=== PATIENT | female | born 1930 | race Caucasian/White ===

== ENCOUNTER → 2016-12-08 | Outpatient (CLI) | payer OTHER, MEDICAID | LOC: CIMAGING 12:14 | PROVIDERS: ATTEND Family Medicine | DX: S32.502A Unspecified fracture of left pubis, initial encounter for closed fracture (principal); M81.8 Other osteoporosis without current pathological fracture | CPT/HCPCS: 72190-PO ==

== ENCOUNTER 2016-12-09 10:00 | Emergency (ER) | payer OTHER, MEDICAID ==
[2016-12-09 10:08] VITALS: TEMP 98.2; O2SAT 96
--- NOTE | 2016-12-09 11:02 | EDPHY ---
H & P Stated Complaint: pelvic fx x 1 month old Time Seen by Provider: 12/09/16 10:10 HPI/ROS: CHIEF COMPLAINT: pelvic fracture HISTORY OF PRESENT ILLNESS: 86-year-old female presents emergency department sent by her primary care doctor for an x-ray that shows a inferior pubic ramus fracture. Patient has been complaining of left hip pain x1 month after walking up stairs at her daughter's house, no trauma. Patient was seen by her primary care doctor, had physical therapy which worsened her pain. She got an x-ray yesterday which showed a inferior pubic ramus fracture. Patient reports pain with weight-bearing, no numbness or tingling to her extremities, loss of control of her bowel or bladder REVIEW OF SYSTEMS: A comprehensive 10 point review of systems is otherwise negative aside from elements mentioned in the history of present illness. Source: Patient Exam Limitations: No limitations - Personal History Current Tetanus/Diphtheria Vaccine: Unsure - Medical/Surgical History Hx Asthma: Yes Hx Chronic Respiratory Disease: No Hx Diabetes: Yes Hx Cardiac Disease: No Hx Renal Disease: No Hx Cirrhosis: No Hx Alcoholism: No Hx HIV/AIDS: No Hx Splenectomy or Spleen Trauma: No Other PMH: Cholecystectomy. Pre Diabetic. HTN. Asthma. GERD. 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 HEENT: PERRL, moist mucous membranes NECK: no meningismus CV: regular rate and regular rhythm PULM: CTAB, no wheezes ABDOMEN: soft, non tender to palpation, BS present BACK: No CVA tenderness NEURO: Neurologically grossly intact EXTREMITIES: Left hip with full range of motion, mild tenderness to palpation to left side on lateral hip squeeze, 2+ pedal pulses, sensation intact to light touch, no leg shortening or rotation SKIN: no rash or break in skin on exposed skin PSYCH: answers questions appropriately. Constitutional: Initial Vital Signs Temperature (C) 36.8 C 12/09/16 10:02 Heart Rate 76 12/09/16 10:02 Respiratory Rate 16 12/09/16 10:02 Blood Pressure 124/85 H 12/09/16 10:02 O2 Sat (%) 96 12/09/16 10:02 O2 Delivery Mode Room Air Allergies/Adverse Reactions: aspirin Allergy (Verified 12/09/16 10:08) GI peanut Allergy (Verified 12/09/16 10:08) RECOMMENDED SHE AVOID Penicillins Allergy (Verified 12/09/16 10:08) Unknown Home Medications: Medication Instructions Recorded Esomeprazole Mag Trihydrate 40 mg PO DAILY PRN 03/24/16 [Nexium] Fluticasone/Salmeter 250/50Mcg 2 puffs IH BID 03/24/16 [Advair 250/50 (*)] Herbals/Supplements -Info Only 1 ea PO DAILY 03/24/16 Loratadine [Claritin 10 mg] 10 mg PO DAILY 03/24/16 amLODIPine BESYLATE [Norvasc 10 mg 10 mg PO DAILY 03/24/16 (*)] Medical Decision Making - Diagnostics Imaging Results: pelvis xray done yesterday shows an left inferior pubic rami fracture. Imaging: I viewed and interpreted images myself ED Course/Re-evaluation: 11am. Dr. Mesa consulted. He has reviewed the patients xrays. Since she has been ambulating on her hip for the past month, he is comfortable with her being discharged to home with instructions for her to ambulate with her walker and to follow up in clinic as an outpatient. Patient and her son are comfortable with this plan. Departure - Departure Disposition: Home, Routine, Self-Care Clinical Impression: Closed fracture of ramus of left pubis Qualifiers: Encounter type: initial encounter Qualified Code(s): S32.592A - Other specified fracture of left pubis, initial encounter for closed fracture Condition: Good Instructions: Pelvic Fracture (ED) Additional Instructions: Rest, take 650mg of tylenol every 8 hours as needed for pain. Follow up with the orthopedist at first available appointment. Call to schedule this. Use a walker for ambulation. Return to the emergency department for worsening symptoms, pain that is not controlled, new symptoms or concerns. Referrals: Jadiel Mesa MD [Medical Doctor] - As per Instructions (orthopedist chronometer repairer)
[2016-12-09 12:08] VITALS: BP 118/74; PULSE 78; RESP 18
== END 2016-12-09 12:08 | disposition home or self-care (01) ==
DX: S32.592A Other specified fracture of left pubis, initial encounter for closed fracture (principal); X58.XXXA Exposure to other specified factors, initial encounter; J45.909 Unspecified asthma, uncomplicated; E11.9 Type 2 diabetes mellitus without complications; I10 Essential (primary) hypertension; Z91.010 Allergy to peanuts

== ENCOUNTER → 2017-01-10 | Outpatient (CLI) | payer OTHER, MEDICAID | LOC: BRMIMAGING 13:29 | PROVIDERS: ATTEND Family Medicine | DX: Z13.820 Encounter for screening for osteoporosis (principal); M81.8 Other osteoporosis without current pathological fracture; D64.9 Anemia, unspecified; N28.9 Disorder of kidney and ureter, unspecified; I10 Essential (primary) hypertension ==

== ENCOUNTER 2017-05-03 08:43 | Inpatient (IN) | payer OTHER, MEDICAID ==
[2017-05-03 09:09] LABS: PLATELET COUNT 307 10^3/uL (150-400)
--- NOTE | 2017-05-03 09:16 | CPEKG ---
Heart Rate: 73 RR Interval: 822 P-R Interval: 228 QRSD Interval: 100 QT Interval: 444 QTC Interval: 490 P [place]: -3 QRS [place]: -14 T Wave [place]: 90 EKG Severity - ABNORMAL ECG - EKG Impression: SINUS RHYTHM EKG Impression: FIRST DEGREE AV BLOCK EKG Impression: LEFT ATRIAL ABNORMALITY EKG Impression: LVH WITH SECONDARY REPOLARIZATION ABNORMALITY EKG Impression: BORDERLINE PROLONGED QT INTERVAL Electronically Signed By: Gilda Duckworth 03-May-2017 15:08:38
--- NOTE | 2017-05-03 09:34 | EDPHY ---
H & P Time Seen by Provider: 05/03/17 08:51 HPI/ROS: CHIEF COMPLAINT: Generalized weakness, right upper quadrant pain HISTORY OF PRESENT ILLNESS: 86-year-old female with a history of hypertension and prior cholecystectomy presents with generalized weakness and right upper quadrant pain. Onset of intermittent right upper quadrant pain 1 week ago, without clear alleviating or aggravating factors. Associated with generalized weakness and a mild headache for the past few days. Decreased appetite yesterday, but tolerating oral fluids and food well. She also complains of ongoing right-sided upper back discomfort over the last few months. The pain increases with movement and with using her walker. She has been using a walker to ambulate after a recent non-operative hip fracture (6 months ago). REVIEW OF SYSTEMS: Constitutional: No fever, no chills Eyes: No visual changes ENT: No sore throat Respiratory: No cough, no shortness of breath Cardiac: No chest pain Gastrointestinal: No nausea, no vomiting, no abdominal pain Genitourinary: no dysuria Musculoskeletal: No leg pain or swelling Skin: No rash Psychiatric: No depression Past Medical/Surgical History: Hypertension Asthma Borderline diabetes Social History: Lives in own home with son Smoking Status: Never smoked Physical Exam: General Appearance: Alert, appears comfortable, Farsi-speaking, son as software consultant Eyes: Pupils equal and round, no conjunctival pallor or injection ENT, Mouth: Mucous membranes moist Neck: Normal inspection Respiratory: Lungs are clear to auscultation Cardiovascular: Regular rate and rhythm Gastrointestinal: Abdomen is soft and nontender Neurological: Alert, oriented x3, cranial nerves II through XII intact, motor 5 /5, sensory intact to light touch, gait not assessed Skin: Warm and dry Extremities: Nontender, no pedal edema Psychiatric: Flat affect Constitutional: Initial Vital Signs Temperature (C) 36.4 C 05/03/17 08:43 Heart Rate 81 05/03/17 08:43 Respiratory Rate 18 05/03/17 08:43 Blood Pressure 185/109 H 05/03/17 08:43 O2 Sat (%) 91 L 05/03/17 08:43 O2 Delivery Mode Room Air Allergies/Adverse Reactions: aspirin Allergy (Verified 05/03/17 08:56) GI peanut Allergy (Verified 05/03/17 08:56) RECOMMENDED SHE AVOID Penicillins Allergy (Verified 05/03/17 08:56) Unknown Home Medications: Medication Instructions Recorded Esomeprazole Mag Trihydrate 40 mg PO DAILY PRN 03/24/16 [Nexium] amLODIPine BESYLATE [Norvasc 10 mg 10 mg PO DAILY@12 03/24/16 (*)] Ferrous Sulfate [Ferrous Sulf 325 325 mg PO DAILY 05/03/17 MG (*)] Fluticasone/Vilanterol [Breo 1 each IH DAILY 05/03/17 Ellipta 100-25 Mcg INH] Levothyroxine [Synthroid 25 mcg 12.5 mcg PO DAILY06 05/03/17 (*)] Medical Decision Making ED Course/Re-evaluation: This patient presents with multiple complaints, but seems that the primary complaints are right upper quadrant pain and generalized weakness. Her abdomen is soft and nontender and she denies abdominal pain in the emergency department. Laboratory studies including LFTs and lipase are normal and she has had a prior cholecystectomy. Given no abdominal tenderness and no pain, I will not proceed with imaging at this time. Laboratories reveal acute hyponatremia, with a serum sodium level of 113. In review of her prior sodium levels, this is quite abnormal for her. According to her son, she has been acting normally and has not been confused. No prior history of severe hyponatremia. She has had decreased appetite over the last 24 hr, but her son thinks that she has had normal fluid intake. No recent medication changes. I ordered a urine sodium and urine osmolality to further evaluate this. No IV fluids were given in the emergency department. The hospitalist service was consulted for admission for acute hyponatremia. d/w Dr. Fierro, will consult. Differential Diagnosis: Altered mental status including but not limited to hypoglycemia, infectious process, electrolyte abnormality, head injury and intoxicants. - Data Points Laboratory Results: Laboratory Results 05/03/17 08:45 05/03/17 08:45 Medications Given: Alteplase, Recombinant (Cathflo Activase) 2 mg IVP PRN PRN PRN Reason: Per PICC line policy Stop: 10/30/17 11:58 Last Admin: 05/04/17 05:29 Dose: 2 mg Amlodipine Besylate (Norvasc) 10 mg PO DAILY@12 [facility] Stop: 10/30/17 16:44 Last Admin: 05/04/17 12:16 Dose: 10 mg Enoxaparin Sodium (Lovenox) 40 mg SC DAILY [facility] Stop: 10/31/17 08:59 Last Admin: 05/04/17 09:43 Dose: 40 mg Ferrous Sulfate (Ferrous Sulfate) 325 mg PO DAILY [place] Stop: 10/31/17 08:59 Last Admin: 05/04/17 09:43 Dose: 325 mg Furosemide (Lasix Injection) 10 mg IVP Q6HRS [place] Stop: 10/31/17 17:59 Last Admin: 05/04/17 17:11 Dose: 10 mg Levothyroxine Sodium (Synthroid) 12.5 mcg PO DAILY06 [place] Stop: 10/31/17 05:59 Last Admin: 05/04/17 05:29 Dose: 12.5 mcg Miscellaneous Medication (Fluticasone/Vilanterol [Breo Ellipta 100-25 Mcg Inh]) 1 each IH DAILY [place] Stop: 10/31/17 08:59 Last Admin: 05/04/17 11:07 Dose: 1 puffs Pantoprazole Sodium (Protonix) 40 mg PO DAILY [place] Stop: 10/31/17 08:59 Last Admin: 05/04/17 09:43 Dose: 40 mg Potassium Chloride (Klor-Con) 10 meq PO Q6H [place] Stop: 10/31/17 13:14 Last Admin: 05/04/17 20:38 Dose: 10 meq Discontinued Medications Lipase/Protease/Amylase (Creon) 1 cap PO TIDMEAL [place] Stop: 10/31/17 11:59 Last Admin: 05/04/17 12:15 Dose: 1 cap Desmopressin Acetate (Ddavp) 2 mcg SC ONCE ONE Stop: 05/04/17 02:16 Last Admin: 05/04/17 02:10 Dose: 2 mcg Dextrose (D5w (Mini-Bag)) 250 ml IV ONCE ONE Stop: 05/04/17 10:01 Last Admin: 05/04/17 10:29 Dose: 250 ml Sodium Chloride (Sodium Chloride 3%) 50 mls @ 100 mls/hr IV ONCE ONE Stop: 05/03/17 15:59 Last Admin: 05/03/17 15:40 Dose: 50 mls Dextrose (D5w) 250 mls @ 0 mls/hr IV ONCE ONE PRN Reason: As Directed Stop: 05/04/17 04:31 Last Admin: 05/04/17 04:45 Dose: 250 mls Dextrose (D5w) 1,000 mls @ 100 mls/hr IV .CONT [place] Stop: 10/31/17 09:59 Last Admin: 05/04/17 10:29 Dose: 1,000 mls Sodium Chloride 50 ml/ (Miscellaneous Information) 50 mls @ 50 mls/hr IV ONCE ONE Stop: 05/04/17 13:59 Last Admin: 05/04/17 13:30 Dose: 50 mls Sodium Chloride (Sodium Chloride 3%) 50 mls @ 100 mls/hr IV ONCE ONE Stop: 05/04/17 19:29 Last Admin: 05/04/17 19:11 Dose: 50 mls Departure - Departure Disposition: [facility] Inpatient Acute Clinical Impression: Acute hyponatremia Condition: Fair
[2017-05-03] MEDS ORDERED: ONDANSETRON DISINTEGRATING 4 MG TAB PO PRN (10:20)
[2017-05-03] MEDS ORDERED: ONDANSETRON 4 MG/2 ML VIAL IVP PRN (10:20)
[2017-05-03] MEDS ORDERED: NON-FORMULARY NEW DRUG (Esomeprazole Mag Trihydrate [Nexium] 40 MG) PO PRN (13:40)
--- NOTE | 2017-05-03 13:46 | PDGENHP ---
History and Physical - Chief Complaint Acute weakness - History of Present Illness PCP: Dr. Tiffanie Meza HPI: 86 yo F presents with acute weakness characterized as generalized with associated disrupted sleep on the evening prior to this presentation secondary to pain located in her shoulders, posterior head, right upper quadrant pain. The symptoms have occurred in the context of approximately 1 week of was initially intermittent right upper quadrant pain and then over the last 2 days has become fairly constant. This has resulted in anorexia, although the patient reports that she has continued attempts to eat and drink normally. She follows a very low-salt diet given her history of hypertension, and she diligently monitors her blood pressure. She has had the pain in her shoulders and posterior head for quite some time, and it is exacerbated by utilizing her walker. She has seen her PCP for this issue and her belief was that the patient was experiencing muscular strain from tension related to use of her walker, which is fairly new since her left hip fracture non operatively treated 6 months ago. Over the past 24 hr, the patient's son, who resides with her, reports that her mental clarity has been impaired, the patient has been feeling dizzy, and that she has this overall seemed more restless. He has also noted oliguria beginning on the evening prior to this presentation, and the patient's last bowel movement was approximately 24-36 hr ago. She has continued taking all of her home medications. History Information - Allergies/Home Medication List Allergies/Adverse Reactions: aspirin Allergy (Verified 05/03/17 08:56) GI peanut Allergy (Verified 05/03/17 08:56) RECOMMENDED SHE AVOID Penicillins Allergy (Verified 05/03/17 08:56) Unknown Home Medications: Esomeprazole Mag Trihydrate [Nexium] 40 mg PO DAILY PRN 03/24/16 [Last Taken 3 Days Ago ~04/30/17] amLODIPine BESYLATE [Norvasc 10 mg (*)] 10 mg PO DAILY@12 03/24/16 [Last Taken 05/02/17] Ferrous Sulfate [Ferrous Sulf 325 MG (*)] 325 mg PO DAILY 05/03/17 [Last Taken 3 Days Ago ~04/30/17] Fluticasone/Vilanterol [Breo Ellipta 100-25 Mcg INH] 1 each IH DAILY 05/03/17 [ Last Taken 05/02/17] Levothyroxine [Synthroid 25 mcg (*)] 12.5 mcg PO DAILY06 05/03/17 [Last Taken ] I have personally reviewed and updated: family history, medical history, social history, surgical history - Past Medical History diabetes type 2 (With most recent hemoglobin A1c 6.2%), hypertension, hyperlipidemia Additional medical history: Hip fracture non operatively managed approximately 6 months ago. Mild to moderate mitral stenosis. Eczema. GERD. Chronic constipation - Surgical History Additional surgical history: Cholecystectomy - Family History Negative for: CAD - Social History Smoking Status: Never smoked Alcohol Use: None Drug Use: None Additional social history: Resides with her adult son, he is her mill operator head, she has returned from [facility], she utilizes a walker Review of Systems Review of Systems: ROS: 10pt was reviewed & negative except for what was stated in HPI & below Constitutional: Reports: weakness Gastrointestinal: Reports: constipation Genitourinary: Reports: other (Oliguria) Muscolosketal: Reports: other (Posterior neck and shoulder pain) Neurological: Reports: headache, other (Dizziness) Physical Exam Physical Exam: Temp Pulse Resp BP Pulse Ox 36.3 C 67 33 H 141/63 H 94 05/03/17 12:13 05/03/17 12:13 05/03/17 12:13 05/03/17 12:13 05/03/17 12:13 O2 (L/minute) 2 Constitutional: appears nourished, not in pain, other (Aged appearing), No uncomfortable Eyes: PERRL, anicteric sclera, EOMI Ears, Nose, Mouth, Throat: moist mucous membranes, hearing normal, ears appear normal, no oral mucosal ulcers Cardiovascular: systolic murmur (2/6 at the sternum, 3/6 at the apex), No irregularly irregular, No tachycardia, No edema Respiratory: no respiratory distress, no rales or rhonchi, clear to auscultation Gastrointestinal: normoactive bowel sounds, no palpable masses, tenderness ( Mild in the right upper quadrant), No guarding, No distension Genitourinary: no bladder fullness, no bladder tenderness, other (No CVA tenderness) Skin: warm, normal color, No rash Musculoskeletal: other (Full range of motion of the neck without any pain elicited, no tenderness over the superior trapezius muscles) Neurologic: sensation intact bilaterally, other (Alert awake oriented x2), No facial droop Psychiatric: not anxious, other (Responsive to verbal stimuli), No agitated Lab Data & Imaging Review 05/03/17 08:45 05/03/17 12:05 WBC 4.87 10^3/uL (3.80-9.50) 05/03/17 08:45 RBC 4.51 10^6/uL (4.18-5.33) 05/03/17 08:45 Hgb 13.1 g/dL (12.6-16.3) 05/03/17 08:45 Hct 35.2 % (38.0-47.0) L 05/03/17 08:45 MCV 78.0 fL (81.5-99.8) L 05/03/17 08:45 MCH 29.0 pg (27.9-34.1) 05/03/17 08:45 MCHC 37.2 g/dL (32.4-36.7) H 05/03/17 08:45 RDW 11.9 % (11.5-15.2) 05/03/17 08:45 Plt Count 307 10^3/uL (150-400) 05/03/17 08:45 MPV 10.0 fL (8.7-11.7) 05/03/17 08:45 Neut % (Auto) 72.9 % (39.3-74.2) 05/03/17 08:45 Lymph % (Auto) 18.1 % (15.0-45.0) 05/03/17 08:45 [place] % (Auto) 7.8 % (4.5-13.0) 05/03/17 08:45 Eos % (Auto) 0.4 % (0.6-7.6) L 05/03/17 08:45 Baso % (Auto) 0.2 % (0.3-1.7) L 05/03/17 08:45 Nucleat RBC Rel Count 0.0 % (0.0-0.2) 05/03/17 08:45 Absolute Neuts (auto) 3.55 10^3/uL (1.70-6.50) 05/03/17 08:45 Absolute Lymphs (auto) 0.88 10^3/uL (1.00-3.00) L 05/03/17 08:45 Absolute Monos (auto) 0.38 10^3/uL (0.30-0.80) 05/03/17 08:45 Absolute Eos (auto) 0.02 10^3/uL (0.03-0.40) L 05/03/17 08:45 Absolute Basos (auto) 0.01 10^3/uL (0.02-0.10) L 05/03/17 08:45 Absolute Nucleated RBC 0.00 10^3/uL (0-0.01) 05/03/17 08:45 Immature Gran % 0.6 % (0.0-1.1) 05/03/17 08:45 Immature Gran # 0.03 10^3/uL (0.00-0.10) 05/03/17 08:45 Sodium 111 mEq/L (135-145) L* 05/03/17 12:05 Potassium 3.9 mEq/L (3.5-5.2) 05/03/17 12:05 Chloride 75 mEq/L (97-110) L 05/03/17 12:05 Carbon Dioxide 27 mEq/l (22-31) 05/03/17 12:05 Anion Gap 9 mEq/L (8-16) 05/03/17 12:05 BUN 10 mg/dL (7-23) 05/03/17 12:05 Creatinine 0.6 mg/dL (0.6-1.0) 05/03/17 12:05 Estimated GFR > 60 05/03/17 12:05 Glucose 117 mg/dL (70-100) H 05/03/17 12:05 Calcium 8.6 mg/dL (8.5-10.4) 05/03/17 12:05 Total Bilirubin 0.4 mg/dL (0.1-1.4) 05/03/17 08:45 Conjugated Bilirubin 0.2 mg/dL (0.0-0.5) 05/03/17 08:45 Unconjugated Bilirubin 0.2 mg/dL (0.0-1.1) 05/03/17 08:45 AST 37 IU/L (14-46) 05/03/17 08:45 ALT 40 IU/L (9-52) 05/03/17 08:45 Alkaline Phosphatase 113 IU/L (38-126) 05/03/17 08:45 Total Protein 7.6 g/dL (6.3-8.2) 05/03/17 08:45 Albumin 4.4 g/dL (3.5-5.0) 05/03/17 08:45 Lipase 180 IU/L (23-300) 05/03/17 08:45 TSH 1.870 uIU/mL (0.465-4.680) 05/03/17 08:45 Urine Color PALE YELLOW 05/03/17 09:05 Urine Appearance CLEAR 05/03/17 09:05 Urine pH 8.0 (5.0-7.5) H 05/03/17 09:05 Ur Specific [place] 1.008 (1.002-1.030) 05/03/17 09:05 Urine Protein 2+ (NEGATIVE) H 05/03/17 09:05 Urine Ketones NEGATIVE (NEGATIVE) 05/03/17 09:05 Urine Blood NEGATIVE (NEGATIVE) 05/03/17 09:05 Urine Nitrate NEGATIVE (NEGATIVE) 05/03/17 09:05 Urine Bilirubin NEGATIVE (NEGATIVE) 05/03/17 09:05 Urine Urobilinogen NEGATIVE EU (0.2-1.0) 05/03/17 09:05 Ur Leukocyte Esterase NEGATIVE (NEGATIVE) 05/03/17 09:05 Urine RBC NONE SEEN /hpf (0-3) 05/03/17 09:05 Urine WBC NONE SEEN /hpf (0-3) 05/03/17 09:05 Ur Epithelial Cells TRACE /lpf (NONE-1+) 05/03/17 09:05 Urine Osmolality 273 mosmo/kg (300-900) L 05/03/17 09:05 Ur Random Sodium 54 mEq/L (30-90) 05/03/17 09:05 Urine Glucose 1+ (NEGATIVE) H 05/03/17 09:05 Visualized and Interpreted Chest x-ray results: Yes Chest X-Ray results: no infiltrate Visualized and Interpreted EKG results: Yes EKG Interpretation: Positive for: other (1st degree AV block with normal sinus mechanism) Assessment & Plan Assessment: 86-year-old female presenting with acute severe hyponatremia Plan: 1. Hyponatremia. Acute, severe, further workup indicated. Review of outside records demonstrates serum sodium level of 136 on 12/29/2016, most recent lab draw -urine sodium level is 54, patient is not on diuretics, suspect that there is a mixed picture with reports of poor oral out take and oliguria over the past 12- 24 hours, the patient's urine sodium level indicates that at least at the present time, she is not overtly hypovolemic -discussed with Dr. Donovan Fierro, consultation appreciated, will place a PICC line and proceed with Q2H lab monitoring -fluids per Dr. Fierro -goal is increase of 0.5 mEq per hour 2. Abdominal pain. Acute, right upper quadrant, unclear etiology, suspect either constipation or bowel related cause -get CT initial abdominal x-ray to evaluate whether the patient has massive distention and constipation which would otherwise explain her abdominal symptoms -if negative, will get abdominal CT scan -liver panel unremarkable, doubt that this is choledocholelithiasis -if patient does require pain medication, will order, hold at present time given her encephalopathy 3. Acute encephalopathy. Evidenced by global brain dysfunction characterized as disorientation, confusion, patient's family reporting that she is not at her mental baseline, all of which is an acute change secondary to the toxic effects of acute hyponatremia 4. Hypertension. Continue patient's home medication beginning tomorrow, depending on blood pressure level 5. Mitral stenosis. Mild to moderate on most recent hospitalization, a mention by Dr. Everton Sun in discharge summary 03/25/2016, patient also with small reversible defect on stress testing, medical management encouraged at that time 6. GERD. Continue PPI Prophylaxis. High risk patient, Lovenox Diet. Regular Code. Full Disposition. Anticipated discharge uncertain this time, anticipated length stay is greater than 48 hr warranting inpatient admission status reasonable medical necessity including acute severe hyponatremia. 40 min of critical care time spent with this patient, at bedside with her and family, addressing the issues outlined above and coordinating her care, specifically her severe acute hyponatremia, which renders patient high risk for worsening morbidity and/or mortality.
--- NOTE | 2017-05-03 14:33 | PDMN ---
Medical Necessity Medical necessity: Pt meets INPT criteria per MD as of 05/03/17; est. LOS >2 MN for eval/tx of acute severe hyponatremia, acute encephalopathy, htn, abd pain, mitral stenosis per H&P.
[2017-05-03] MEDS ORDERED: SODIUM Cl 3% 50 ML IV ONE (15:30)
--- NOTE | 2017-05-03 18:13 | GCON ---
[f rep st] CONSULTATION DATE OF CONSULTATION: 05/03/2017 REASON FOR CONSULTATION: Opinion regarding hyponatremia. HISTORY OF PRESENT ILLNESS: The patient is a very pleasant, 86-year-old Afghani woman, who speaks no Irish and I speak no Afghani. Her son and daughter are at the bedside and both acted as interpret ers for conversation. The patient complained of weakness, fatigue, nausea, and musculoskeletal pains over the course of the past several days with worsening last night. She has chronic left hip pain from what sounds like a pubic ramus fracture 6 months ago that was not treated surgically, but managed conservatively. She h as been using a walker subsequently, and apparently, has been hunching over her walker, causing strai n on her shoulders, arms, neck and back. Apparently, she also has a long history of abdominal discom fort issues with constipation alternating with loose stool. This has apparently worsened over the co urse of the past 2 or 3 days. She has not been having fevers, chills. Occasional nausea, but no vom iting. No chest pain, cough, hemoptysis, hematemesis, epistaxis, melena, hematochezia, blurry vision , double vision, headache, orthopnea, paroxysmal nocturnal dyspnea, palpitations, syncope. Her urine output has been down a bit over the course of the past 24 hours; however, she has not been eating or drinking well. No gross hematuria or dysuria. PAST MEDICAL HISTORY: Significant for: 1. Hypertension. 2. Gout. 3. Newly diagnosed hypothyroidism. She took her thyroid replacement for approximately 4 days, then stopped until yesterday, when she took another thyroid replacement tablet. 4. Peptic ulcer disease. 5. Status post cholecystectomy. 6. Asthma. 7. Constipation. 8. Prediabetes mellitus type 2. 9. Mild to moderate mitral stenosis. MEDICATIONS: Include: 1. Synthroid 25 mcg daily. 2. Vitamin D. 3. Norvasc 10 mg a day. 4. Iron sulfate 1 a day. 5. Zofran. 6. Protonix 40 mg a day. ALLERGIES: Aspirin, penicillin and peanuts. SOCIAL HISTORY: She lives with her son. She does not use tobacco, alcohol, IV or recreational drugs . REVIEW OF SYSTEMS: A complete 12-point review of systems was performed with pertinent positives and negatives as per the previous sections. PHYSICAL EXAMINATION: VITAL SIGNS: Blood pressure is 141/63, pulse is 67, respirations 16, temperat ure 36.3, weight 63.5 kg. GENERAL: She is awake, cooperative, somewhat confused and is a bit fatigu ed-appearing. HEENT: Pupils are reactive to light. Extraocular movements are intact. Mucous membr anes are moist. NECK: No lymphadenopathy or thyromegaly. HEART: Regular. No rub. No S3. Grade 1/6 systolic murmur. LUNGS: No rales, rhonchi, or wheezes. ABDOMEN: Bowel sounds are positive. T rodolfo, particularly in the right upper quadrant. Mild distention. EXTREMITIES: No edema, cyanosis or clubbing. NEUROLOGIC: No asterixis. SKIN: No unusual rashes or lesions. She has occasional ec chymoses. LYMPH: No palpable lymphadenopathy or lymphedema. MUSCULOSKELETAL: No effusions or tend erness. LABORATORY: Serum sodium is 111 (this is down from 113 earlier), potassium 3.9, chloride 75, CO2 of 27, anion gap of 9, BUN 10, creatinine 0.6, glucose 117, calcium 8.6, albumin 4.4, AST 37, lipase 180 . Urine sodium 54, urine osmolality 273. Urinalysis showed a specific gravity of 1.008, pH 8, +2 pr otein, negative blood. TSH of 1.870. IMPRESSION: 1. Hyponatremia, symptomatic, with some lethargy and worsening confusion. Serum sodium seems to be dropping from 113 earlier today, now to 111. I suspect this is likely due to syndrome of inappropria te antidiuretic hormone secretion from pain. Other possibilities certainly would include tea and toa st diet. She has not been eating or drinking much over the course of the past several days, drinking mostly hypotonic liquids such as tea, and has not been getting much in the way of other osmoles in h er diet. 2. Hypothyroidism, which from a TSH standpoint, looks to be replaced. 3. Pain for at least the past 6 months. 4. Confusion. 5. Abdominal discomfort. RECOMMENDATIONS: 1. Counseled the patient and the family regarding our therapeutic approach. 2. We will fluid restrict to 1200 cc or less daily. 3. We will give 50 cc of 3% sodium chloride over 30 minutes to help stabilize her serum sodium. 4. We will continue [id number] sodium checks. 5. Repeat her urine chemistries. 6. Check cortisol level. 7. Check an echocardiogram. Thank you for allowing me to participate in the care of your patient. If there are any questions, pl ease do not hesitate to contact me. I will be following along with you. /[id number]/MODL
[2017-05-04] MEDS ORDERED: DESMOPRESSIN ACETATE 4 MCG/ML INJ SC ONE (02:15)
[2017-05-04] MEDS ORDERED: D5W 250 ML IV ONE (04:30)
[2017-05-04] MEDS: ALTEPLASE 2 MG VIAL IVP PRN (05:29)
[2017-05-04] MEDS: LEVOTHYROXINE 25 MCG TAB PO SCH (05:29)
[2017-05-04] MEDS ORDERED: NON-FORMULARY NEW DRUG (Fluticasone/Vilanterol [Breo Ellipta 100-25 Mcg Inh] 1 EACH) IH SCH ×2 (09:00)
[2017-05-04] MEDS: PANTOPRAZOLE SODIUM 40 MG TAB PO SCH (09:43)
[2017-05-04] MEDS: FERROUS SULFATE 325 MG TAB PO SCH (09:43)
[2017-05-04] MEDS: ENOXAPARIN 40 MG/0.4 ML SYR SC SCH (09:43)
[2017-05-04] MEDS ORDERED: [UNRECOGNIZED DRUG - OTHER] IV ONE (10:00)
[2017-05-04] MEDS ORDERED: D5W IV ONE (10:00)
[2017-05-04] MEDS ORDERED: D5W 1,000 ML IV SCH (10:00)
[2017-05-04] MEDS ORDERED: IOPAMIDOL (ISOVUE-300) 100 ML BTL ONE (11:22)
--- NOTE | 2017-05-04 11:38 | ECHO ---
[email or web address] [address] [address] Main: [phone] Fax: Transthoracic Echocardiogram Name: JENNIFER FRANCIS MR#: [id number] Study Date: 05/03/2017 Study Time: 03:53 PM Date of : 1930 Age: 86 year(s) Height: 152.4 cm (60 in.) Weight: 63.5 kg (140 lb.) BSA: 1.6 m2 Gender: Female Examination: Echo Indication: Hyponatremia Image Quality: Contrast: Requested by: Slava Fierro BP: 143 mmHg/59 mmHg Heart Rate: Rhythm: Indication: Hyponatremia Procedure Staff Credit Risk Associate: Juan Aguila RDCS Reading Physician: Giovanni Nassar Requesting Provider: Conclusions: Normal size left ventricle. Mild to moderate LVH. EF is 71 %. The left atrium is severely dilated. Severe mitral valve leaflet calcification is present. Severe mitral annular calcification. Moderate mitral valve stenosis is present. Mild mitral valve regurgitation is present. The pulmonary artery pressure is normal. Measurements: Chambers Valvular Assessment AV/MV Valvular Assessment TV/PV Normal Normal Normal Name Value Range Name Value Range Name Value Range Ao Natasha (MM): 2.7 cm (2.2 cm-3.7 AV Vmax: 1.86 m/s (1 m/s-1.7 cm) m/s) IVSd (2D): 1.0 cm (0.6 cm-1.1 AV meanP mmHg ( - ) cm) LVOT Vmax: 1.26 m/s (0.7 m/s-1.1 LVDd (2D): 3.6 cm (3.9 cm-5.3 m/s) cm) KAM (Vmax): 2.1 cm2 ( - ) LVDs (2D): 2.2 cm (2.1 cm-4 KAM (VTI): 2.6 cm ( - ) cm) MV E Vmax: 1.13 m/s ( - ) LVPWd (2D): 1.0 cm ( - ) MV A Vmax: 2.08 m/s ( - ) LVOTd 2.0 cm 2.0 cm mm MV E/A: 0.54 ( - ) LVEF (2D): 71 (>=54 %) MV meanP mmHg ( - ) MV PHT: 0.152 s ( - ) MVA (Vmax): 1.5 m/s ( - ) MVA (PHT): 1.4 s ( - ) Continued Measurements: Patient: JENNIFER FRANCIS Study Date: 05/03/2017 Page 1 of 2 03:53 PM Chambers Valvular Assessment AV/MV Name Value Name Value LADs Lon.6 cm MV DecTime: 511 m/s LA Area: 20.8 cm2 MV VTI: 64.90 cm LA Volume: 80 ml LA Volume Index: 50.0 ml/m2 Findings: Left Ventricle: Normal size left ventricle. Mild to moderate LVH. Global hypercontractility of the left ventricle. EF is 71 %. No regional wall motion abnormality. Grade 1 diastolic dysfunction (abnormal relaxation). Right Ventricle: Normal size right ventricle. Left Atrium: The left atrium is severely dilated. Right Atrium: The right atrium is mildly dilated. Mitral Valve: Severe mitral valve leaflet calcification is present. Severe mitral annular calcification. Moderate mitral valve stenosis is present. Mild mitral valve regurgitation is present. Aortic Valve: Mild aortic cusp calcification is noted. No aortic valve stenosis is present. There is no aortic valve regurgitation. Tricuspid Valve: Trivial to mild tricuspid valve regurgitation. The pulmonary artery pressure is normal. Pulmonic Valve: The pulmonic valve is normal in appearance and function. Aorta: The aorta is normal. Normal size aortic root measuring 2.7 cm. Normal size ascending aorta. Pericardium: No pericardial effusion. (No Signature Object) Patient: JENNIFER FRANCIS Study Date: 05/03/2017 Page 2 of 2 03:53 PM [id number]
--- NOTE | 2017-05-04 11:42 | ASMTCASEMG ---
Living Arrangements What is your living Answers: With Child(belia) arrangement? Who do you live with? Type Of Residence What kind of residence do Answers: Apartment you live in? Discharge Plan Comments Coordination Status Comments Notes: Patient is an 86yo female who was admitted for hyponatremia, abdominal pain, acute encephalopathy, hypertension and mitral stenosis. Patient is living with her son. OT/PT have been ordered. PT is recommending home care. CM to follow up with patient to determine which home care agency she would like to use. CM will follow. Date Signed: 05/04/2017 11:41 AM Electronically Signed By:Colette Gandhi LCSW
[2017-05-04] MEDS ORDERED: LIPASE 12,000/AMYLASE/PROTEASE (CREON) 1 CAP PO SCH (12:00)
[2017-05-04] MEDS ORDERED: SODIUM CL 3% IV ONE (13:00)
--- NOTE | 2017-05-04 13:01 | SOAPPROG ---
SOAP Progress Note Assessment/Plan: Assessment: hyponatremia trending down with DDAVP and D5W, retrocardiac hiatal hernia, may be contributing to her GI distress possible asbestos related calcifications on right (may be due to heating source as a child and young woman) Severe MAC moderate MS and mild MR Severely dilated RA Plan: will give some 3% saline and lasix. DC D5W continue frequent sodium checks encouraged good oral intake discussed findings of CT and Echo with family 05/04/17 12:56 Subjective: feels much better today no abd pain, eating well didn't sleep well last night no cp sob nausea or vomiting thinking clear today spirits good daughter at bedside Objective: Vital Signs Temp Pulse Resp BP Pulse Ox 36.9 C 70 19 121/51 H 94 05/04/17 07:52 05/04/17 12:00 05/04/17 12:00 05/04/17 12:00 05/04/17 12:00 Laboratory Results 05/04/17 12:15 05/03/17 05/04/17 05/05/17 05:59 05:59 05:59 Intake Total 1050 Output Total 1250 Balance -200 Physical Exam - Physical Exam General Appearance: alert, no apparent distress Respiratory: No rhonchi, No wheezing, No pleural rub Cardiac/Chest: regular rate, rhythm, systolic murmur, No edema Abdomen: normal bowel sounds, non-tender, soft Skin: warm/dry Extremities: No pedal edema Neuro/Psych: alert, normal mood/affect, oriented x 3 ICD10 Worksheet Patient Problems: Problems Problem Status Onset Acute hyponatremia Acute Arm pain, left Acute Heart palpitations Acute
[2017-05-04] MEDS: POTASSIUM CL 10 MEQ TAB PO SCH ×2 (13:30→20:38)
--- NOTE | 2017-05-04 14:04 | HOSPPROG ---
Hospitalist Progress Note Assessment/Plan: * severe hypernatremia * Due to low solute intake and high free water intake while she will not eating due to her acute on chronic abdominal discomfort * Nephrology following * Sodium did drop * They are managing * acute on chronic abdominal discomfort * Could be due to hiatal hernia * Will try PPI, she has not been taking this regularly * history of hypertension * Will watch * Encourage to increase her salt intake in spite of her hypertension. She apparently does not consume any additional salt Subjective: Mental status is a lot better. She has chronic abdominal pain that worsened over the last week causing her not to eat Objective: Vital Signs Temp Pulse Resp BP Pulse Ox 36.9 C 70 19 121/51 H 94 05/04/17 07:52 05/04/17 12:00 05/04/17 12:00 05/04/17 12:00 05/04/17 12:00 Laboratory Results 05/04/17 12:15 05/03/17 05/04/17 05/05/17 05:59 05:59 05:59 Intake Total 1050 Output Total 1250 Balance -200 Discussed with pulmonology and Nephrology - Physical Exam Constitutional: no apparent distress, appears nourished, not in pain Eyes: anicteric sclera, EOMI Ears, Nose, Mouth, Throat: moist mucous membranes, hearing normal Cardiovascular: regular rate and rhythym, no murmur, rub, or gallop Respiratory: no respiratory distress, no rales or rhonchi, clear to auscultation Skin: warm Neurologic: AAOx3 Psychiatric: interacting appropriately, not anxious, not encephalopathic, thought process linear ICD10 Worksheet Patient Problems: Problems Problem Status Onset Acute hyponatremia Acute Arm pain, left Acute Heart palpitations Acute
[2017-05-04] MEDS: FUROSEMIDE 20 MG/2 ML VIAL IVP SCH ×2 (17:11→23:27)
[2017-05-04] MEDS ORDERED: SODIUM Cl 3% 50 ML IV ONE (19:00)
[2017-05-05] MEDS ORDERED: SODIUM CL 3% IV ONE
[2017-05-05] MEDS: POTASSIUM CL 10 MEQ TAB PO SCH ×4 (00:03→19:45)
[2017-05-05] MEDS: FUROSEMIDE 20 MG/2 ML VIAL IVP SCH ×3 (06:35→18:05)
[2017-05-05] MEDS: ENOXAPARIN 40 MG/0.4 ML SYR SC SCH (08:55)
[2017-05-05] MEDS: FERROUS SULFATE 325 MG TAB PO SCH (08:56)
[2017-05-05] MEDS: PANTOPRAZOLE SODIUM 40 MG TAB PO SCH (08:56)
[2017-05-05] MEDS: LEVOTHYROXINE 25 MCG TAB PO SCH (08:56)
[2017-05-05] MEDS ORDERED: NS IV ONE (10:27)
[2017-05-05] MEDS ORDERED: DESMOPRESSIN ACETATE IV ONE (10:27)
--- NOTE | 2017-05-05 12:36 | SOAPPROG ---
SOAP Progress Note Assessment/Plan: Assessment: 1.. Severe symptomatic hyponatremia Her sodium has been quite difficult to correct appropriately. Current goal for the day is 120 to 122. I gave DDAVP at 119, and she has since declined to 117. I will not allow po hypotonic fluids for now, and will use 3% if indicated. Her solute intake is quite poor. I reviewed plan with daughter and RN. All questions were answered. Ultimately, when patient is dc'd, we will need to work on better solute intake. Urea can also be used for this, and is better tolerated than sodium. [facility] can dispense this. Plan: 05/05/17 12:33 Subjective: Looks comfortable. No complaints. Objective: Vital Signs Temp Pulse Resp BP Pulse Ox 36.5 C 60 17 112/45 L 98 05/05/17 11:50 05/05/17 11:50 05/05/17 11:50 05/05/17 12:22 05/05/17 11:50 Laboratory Results 05/05/17 10:30 05/04/17 05/05/17 05/06/17 05:59 05:59 05:59 Intake Total 1050 1661 Output Total 1250 1600 600 Balance -200 61 -600 Physical Exam - Physical Exam General Appearance: no apparent distress Respiratory: lungs clear Cardiac/Chest: regular rate, rhythm Extremities: normal inspection Neuro/Psych: alert ICD10 Worksheet Patient Problems: Problems Problem Status Onset Acute hyponatremia Acute Arm pain, left Acute Heart palpitations Acute
--- NOTE | 2017-05-05 13:13 | HOSPPROG ---
Hospitalist Progress Note Assessment/Plan: * severe hypernatremia * Due to low solute intake and high free water intake while she will not eating due to her acute on chronic abdominal discomfort * Fluid restrict * Nephrology following, has been difficult to manage * acute on chronic abdominal discomfort * Could be due to hiatal hernia * PPI appears to be working * history of hypertension * monitoring * on Amlodipine * Encephalopathy * resolved, now at baseline Plan: pt discussed during team rounds She is eating well, no further abd pain schedule potassium replacement Na mgmt per nephrology Lovenox for DVT proph Subjective: Feels better. at baseline mentation. no cp or SOB. Objective: Vital Signs Temp Pulse Resp BP Pulse Ox 36.5 C 60 17 112/45 L 98 05/05/17 11:50 05/05/17 11:50 05/05/17 11:50 05/05/17 12:22 05/05/17 11:50 05/04/17 05/05/17 05/06/17 05:59 05:59 05:59 Intake Total 1050 1661 Output Total 1250 1600 600 Balance -200 61 -600 - Physical Exam Constitutional: no apparent distress Eyes: PERRL, EOMI Ears, Nose, Mouth, Throat: moist mucous membranes, hearing normal Cardiovascular: regular rate and rhythym, No edema Respiratory: no respiratory distress Gastrointestinal: normoactive bowel sounds, soft, non-tender abdomen Skin: warm Psychiatric: interacting appropriately, encephalopathic Lymph, Heme, Immunologic: No lymphadenopathy ICD10 Worksheet Patient Problems: Problems Problem Status Onset Acute hyponatremia Acute Arm pain, left Acute Heart palpitations Acute
[2017-05-05] MEDS ORDERED: SODIUM Cl 3% 50 ML IV ONE (14:00)
[2017-05-05] MEDS ORDERED: SODIUM Cl 3% 30 ML IV ONE ×2 (14:30→19:30)
--- NOTE | 2017-05-05 15:04 | ASMTCMCOM ---
CM Note CM Note Notes: Spoke with patient's daughter Irlanda who helped translate information to patient. PT is recommending home care. Patient is amenable to home PT. She lives with her son who would be there to translate/assist. I called [facility] who will follow patient. We will notify them upon discharge. Date Signed: 05/05/2017 03:04 PM Electronically Signed By:Debora Ray RN
[2017-05-05] MEDS ORDERED: POTASSIUM CL 20 MEQ TAB PO ONE (17:15)
[2017-05-05] MEDS: ACETAMINOPHEN 325 MG TAB PO PRN (21:43)
[2017-05-05] MEDS ORDERED: DESMOPRESSIN ACETATE 4 MCG/ML INJ SC ONE (23:00)
[2017-05-06] MEDS: FUROSEMIDE 20 MG/2 ML VIAL IVP SCH ×2 (00:25→06:41)
[2017-05-06] MEDS ORDERED: D5W 100 ML IV SCH (03:00)
[2017-05-06] MEDS ORDERED: 1/2 NS IV SCH (03:00)
[2017-05-06] MEDS: LEVOTHYROXINE 25 MCG TAB PO SCH (05:55)
[2017-05-06] MEDS ORDERED: POTASSIUM CL 10 MEQ TAB PO ONE (06:21)
[2017-05-06] MEDS: PANTOPRAZOLE SODIUM 40 MG TAB PO SCH (07:59)
[2017-05-06] MEDS: FERROUS SULFATE 325 MG TAB PO SCH (07:59)
--- NOTE | 2017-05-06 09:24 | SOAPPROG ---
CHRISTINE Progress Note Assessment/Plan: Assessment: 1.. Severe symptomatic hyponatremia Levels are correcting appropriately. Goal for next 24 hours is for low 130' s. Her DDAVP will wear off soon, so will continue to monitor. She currently is taking in ensure, limiting hypotonic fluids. She is reportedly eating ok. She had been getting lasix. I had DC'd this. 2. Hypokalemia Will replace. 3. R hip pain She is complaining of R hip pain. I will ask RN and PT to assess further as she ambulates today. Plan: 05/05/17 12:33 05/06/17 09:24 Subjective: Doing ok Objective: Vital Signs Temp Pulse Resp BP Pulse Ox 36.8 C 66 15 119/53 L 96 05/06/17 07:57 05/06/17 07:57 05/06/17 07:57 05/06/17 07:57 05/06/17 07:57 Laboratory Results 05/06/17 08:00 05/05/17 05/06/17 05/07/17 05:59 05:59 05:59 Intake Total 1661 1140 Output Total 1600 1525 Balance 61 -385 Physical Exam - Physical Exam General Appearance: no apparent distress Respiratory: lungs clear Cardiac/Chest: irregularly irregular Skin: normal color Extremities: normal inspection Neuro/Psych: oriented x 3 ICD10 Worksheet Patient Problems: Problems Problem Status Onset Acute hyponatremia Acute Arm pain, left Acute Heart palpitations Acute
[2017-05-06] MEDS: ENOXAPARIN 40 MG/0.4 ML SYR SC SCH (10:57)
--- NOTE | 2017-05-06 11:26 | HOSPPROG ---
Hospitalist Progress Note Assessment/Plan: * severe hypernatremia, improving * Due to low solute intake and high free water intake while she will not eating due to her acute on chronic abdominal discomfort * Fluid restrict * Nephrology following, has been difficult to manage * acute on chronic abdominal discomfort, resolved * Could be due to hiatal hernia * cont PPI * history of hypertension * monitoring, well controlled * on Amlodipine * Encephalopathy * resolved, now at baseline * Hypokalemia, replacing * Right back pain, hip pain: appears muscular. No CVA tenderness. No dysuria. The family is requesting a UA, I'll order. PT to see her * Iron deficiency anemia, on iron * Hypothyroidism, on levothyroxine Plan: pt discussed during team rounds She is eating well, no further abd pain schedule potassium replacement Na mgmt per nephrology UA per above PT/Ot Lovenox for DVT proph Subjective: no abd pain. some right hip and back pain. Na is better. Objective: Vital Signs Temp Pulse Resp BP Pulse Ox 36.8 C 66 15 119/53 L 96 05/06/17 07:57 05/06/17 07:57 05/06/17 07:57 05/06/17 07:57 05/06/17 07:57 05/05/17 05/06/17 05/07/17 05:59 05:59 05:59 Intake Total 1661 1140 Output Total 1600 1525 Balance 61 -385 - Physical Exam Constitutional: no apparent distress Eyes: PERRL Ears, Nose, Mouth, Throat: moist mucous membranes, hearing normal Cardiovascular: regular rate and rhythym, No edema Respiratory: no respiratory distress, no rales or rhonchi Gastrointestinal: normoactive bowel sounds, soft, non-tender abdomen Skin: warm Neurologic: AAOx3 Psychiatric: interacting appropriately, not anxious, not encephalopathic Lymph, Heme, Immunologic: No petechiae ICD10 Worksheet Patient Problems: Problems Problem Status Onset Acute hyponatremia Acute Arm pain, left Acute Heart palpitations Acute
[2017-05-06] MEDS: ALTEPLASE 2 MG VIAL IVP PRN (13:33)
[2017-05-06] MEDS: amLODIPine BESYLATE 5 MG TAB PO SCH (20:45)
[2017-05-06] MEDS: ACETAMINOPHEN 325 MG TAB PO PRN (22:12)
[2017-05-07] MEDS: LEVOTHYROXINE 25 MCG TAB PO SCH (06:33)
[2017-05-07] MEDS: ENOXAPARIN 40 MG/0.4 ML SYR SC SCH (08:46)
[2017-05-07] MEDS: FERROUS SULFATE 325 MG TAB PO SCH (08:46)
[2017-05-07] MEDS: amLODIPine BESYLATE 5 MG TAB PO SCH (08:46)
[2017-05-07] MEDS: PANTOPRAZOLE SODIUM 40 MG TAB PO SCH (08:46)
[2017-05-07] MEDS ORDERED: POLYETHYLENE GLYCOL 3350 17 GM PKT PO PRN (09:36)
[2017-05-07] MEDS ORDERED: LACTULOSE 20 GM/30 ML UDCUP PO PRN (09:36)
[2017-05-07] MEDS ORDERED: MAGNESIUM HYDROXIDE 30 ML UDCUP PO PRN (09:36)
[2017-05-07] MEDS ORDERED: BISACODYL 10 MG SUPP PR PRN (09:36)
--- NOTE | 2017-05-07 09:50 | SOAPPROG ---
SODIANNA Progress Note Assessment/Plan: Assessment: 1.. Severe symptomatic hyponatremia Levels were correcting appropriately as of last pm. I expected effect of DDAVP to wear off, and during her sleep, more rapid correction. I did allow her to drink some. Now sodium has reduced. Will change fluid restriction to 800ml/day. She can drink ensure without this counting in fluid restriction. Given her Na was upper 120's last pm, I feel she can be allowed to correct into the 130's today. Will follow. 2. Hypokalemia Improved. 3. R hip pain She is complaining of R hip pain. I will ask RN and PT to assess further as she ambulates today. 05/07/17 09:50 05/07/17 09:56 Subjective: Doing fine Objective: Vital Signs Temp Pulse Resp BP Pulse Ox 36.4 C 62 19 121/47 H 94 05/07/17 08:00 05/07/17 08:00 05/07/17 08:00 05/07/17 08:46 05/07/17 08:00 Laboratory Results 05/07/17 06:36 05/06/17 05/07/17 05/08/17 05:59 05:59 05:59 Intake Total 1140 1700 50 Output Total 1525 1150 600 Balance -385 550 -550 Physical Exam - Physical Exam General Appearance: no apparent distress Respiratory: lungs clear Cardiac/Chest: regular rate, rhythm Extremities: normal inspection Neuro/Psych: oriented x 3 ICD10 Worksheet Patient Problems: Problems Problem Status Onset Acute hyponatremia Acute Arm pain, left Acute Heart palpitations Acute
--- NOTE | 2017-05-07 11:03 | HOSPPROG ---
Hospitalist Progress Note Assessment/Plan: 86 yo female admitted with symptomatic hyponatremia of unclear etiology. Possibly from low solute intake and high free water intake. Unclear if she has SiADH. She was initially on Lasix 10mg daily for unclear reasons. Na has been difficult to control and Nephrology has been following. Last evening she received 2.5 large cups of water and her Na has again decreased. * severe hyponatremia, improving * Fluid restrict per Nephrology * Nephrology following, has been difficult to manage * acute on chronic abdominal discomfort, resolved * Could be due to hiatal hernia * cont PPI * history of hypertension * monitoring, well controlled * on Amlodipine * Encephalopathy * resolved, now at baseline * Hypokalemia, replacing * Right back pain, hip pain: appears muscular. No CVA tenderness. No dysuria. Negative UA -much better today, does not complain about it * Iron deficiency anemia, on iron * Hypothyroidism, on levothyroxine * constipation, i will start a bowel regimen Plan: pt discussed during team rounds She is eating well, no further abd pain schedule potassium replacement Na mgmt per nephrology start bowel regimen for constipation PT/Ot Lovenox for DVT proph Subjective: Na has decreased to 122. Not confused. Feels constipated. Objective: Vital Signs Temp Pulse Resp BP Pulse Ox 36.4 C 62 19 121/47 H 94 05/07/17 08:00 05/07/17 08:00 05/07/17 08:00 05/07/17 08:46 05/07/17 08:00 Laboratory Results 05/07/17 06:36 05/06/17 05/07/17 05/08/17 05:59 05:59 05:59 Intake Total 1140 1700 50 Output Total 1525 1150 600 Balance -385 550 -550 - Physical Exam Constitutional: no apparent distress, not in pain Eyes: PERRL, EOMI Ears, Nose, Mouth, Throat: moist mucous membranes, hearing normal Cardiovascular: regular rate and rhythym, No edema Respiratory: no respiratory distress, no rales or rhonchi, clear to auscultation Gastrointestinal: normoactive bowel sounds Skin: warm Musculoskeletal: generalized weakness Neurologic: AAOx3 Psychiatric: interacting appropriately, not anxious, not encephalopathic ICD10 Worksheet Patient Problems: Problems Problem Status Onset Acute hyponatremia Acute Arm pain, left Acute Heart palpitations Acute
[2017-05-07] MEDS ORDERED: POTASSIUM CL 10 MEQ TAB PO ONE (13:45)
[2017-05-07] MEDS ORDERED: POTASSIUM Cl (KCl) 10 MEQ in D5W 50 ML IV SCH (14:00)
[2017-05-07] MEDS ORDERED: POTASSIUM Cl (KCl) 50 ML IV SCH (14:00)
[2017-05-07] MEDS: SENNOSIDES/DOCUSATE SODIUM TAB PO SCH (20:26)
[2017-05-08] MEDS: LEVOTHYROXINE 25 MCG TAB PO SCH (05:56)
--- NOTE | 2017-05-08 07:58 | SOAPPROG ---
SOAP Progress Note Assessment/Plan: Assessment: 1.. Severe symptomatic hyponatremia -Up to 131 today, appropriate rate of correction -required lasix, 3% saline yesterday due to DDAVP effect bringing back down -ok to liberalize fluid restriction today to 1.5 L/day as long as pt also eating , continue q4 hour labs for now to ensure stable -encourage better po intake- i discussed with son -needs hypothyroidism better treated- discussed with son as pt has been resistant to taking synthroid (didn;'t like pill and capsule has gelatin with pork which violates sikhism beliefs--- he will look into compounding pharmacy to see if capsule can be made without this). 2. Hypokalemia Improved. 3. Constipation working on bowel regimen i think hypothyroidism is contributing and discussed this with son 4. hip pain- better, ambulating. Has had prior fracture on that side 5.possible UTI -awaiting final Cx, I will defer to hospitalist I discussed with DOOR AND ARRIVAL ATTENDANT Henrietta Pantoja MD [facility] pager [phone] 05/08/17 09:37 05/08/17 09:42 Subjective: Feels ok. No BM x 5 days. Eating ok. No n/v, no LE edema/sob. Son had many questions for me that I answered. Hip pain better, able to ambulate around nursing station. Objective: Vital Signs Temp Pulse Resp BP Pulse Ox 36.4 C 60 19 117/58 L 99 05/08/17 07:31 05/08/17 07:31 05/08/17 07:31 05/08/17 07:31 05/08/17 07:31 05/07/17 05/08/17 05/09/17 05:59 05:59 05:59 Intake Total 1700 450 Output Total 1150 1450 Balance 550 -1000 Physical Exam - Physical Exam General Appearance: alert, no apparent distress EENT: other (mmm) Neck: supple Respiratory: normal breath sounds Cardiac/Chest: regular rate, rhythm Abdomen: normal bowel sounds, non-tender, soft Skin: warm/dry, other Extremities: other (no edema) Neuro/Psych: alert, oriented x 3 ICD10 Worksheet Patient Problems: Problems Problem Status Onset Acute hyponatremia Acute Arm pain, left Acute Heart palpitations Acute
[2017-05-08] MEDS: PANTOPRAZOLE SODIUM 40 MG TAB PO SCH (08:49)
[2017-05-08] MEDS: FERROUS SULFATE 325 MG TAB PO SCH (08:49)
[2017-05-08] MEDS: amLODIPine BESYLATE 5 MG TAB PO SCH (08:49)
[2017-05-08] MEDS: SENNOSIDES/DOCUSATE SODIUM TAB PO SCH ×2 (08:49→20:14)
[2017-05-08] MEDS: ENOXAPARIN 40 MG/0.4 ML SYR SC SCH (08:49)
--- NOTE | 2017-05-08 14:21 | ASMTCMCOM ---
CM Note CM Note Notes: Hyponatremia better. Discharge plan continues to be [facility]. Date Signed: 05/08/2017 02:20 PM Electronically Signed By:Tresa Tracey LCSW
--- NOTE | 2017-05-08 17:09 | HOSPPROG ---
Hospitalist Progress Note Assessment/Plan: * Hyponatremia - s/p slow correction -fluid restrict and follow closely - continue Q4 BMP * Metabolic encephalopathy due to hyponatremia -resolved * Constipation -bowel protocol * Hypothyroidism -TSH normal on current thyroid replacement * Borderline cortisol level -check formal shalini stim test in am * HTN -Norvasc restarted at lower dose * Recent hip fx - non-operative -PT/OT * Moderate MS Subjective: No complaints, had good BM today Objective: Vital Signs Temp Pulse Resp BP Pulse Ox 36.5 C 72 19 115/47 L 90 L 05/08/17 15:30 05/08/17 15:30 05/08/17 15:30 05/08/17 15:30 05/08/17 15:30 Laboratory Results 05/08/17 16:05 05/07/17 05/08/17 05/09/17 05:59 05:59 05:59 Intake Total 1700 450 700 Output Total 1150 1450 225 Balance 550 -1000 475 d/w Dr. Bird ICU rounds - ok for floor if they do Q4 lab draw ABD CT - no mass, + HH - Physical Exam Constitutional: no apparent distress, appears nourished, not in pain Cardiovascular: regular rate and rhythym, no murmur, rub, or gallop Gastrointestinal: normoactive bowel sounds, soft, non-tender abdomen, no palpable masses Skin: no rashes or abrasions, no fluctuance, no induration Neurologic: AAOx3, sensation intact bilaterally Psychiatric: interacting appropriately, not anxious, not encephalopathic, thought process linear ICD10 Worksheet Patient Problems: Problems Problem Status Onset Acute hyponatremia Acute Arm pain, left Acute Heart palpitations Acute
[2017-05-09] MEDS ORDERED: D5W 1,000 ML IV SCH (01:20)
[2017-05-09] MEDS ORDERED: COSYNTROPIN 0.25 MG/2 ML SYRINGE IVP ONE (06:00)
[2017-05-09] MEDS: LEVOTHYROXINE 25 MCG TAB PO SCH (06:21)
--- NOTE | 2017-05-09 07:34 | SOAPPROG ---
SOAP Progress Note Assessment/Plan: Assessment: 1.. Severe symptomatic hyponatremia -Up to 134 on last labs -started on d5w around midnight for Na 138, will stop now. Need to recheck in a few hours with her own solute/water intake to ensure stability but I think she is afraid to drink fluids at this point. I discussed at length with son need to encourage her to both eat and drink appropriately. I think reasonable amount of fluid intake is about 1.5 L/day as long as eating varied diet as well. -If na remains in mid 130s today, i think could d/c later today -continue treatment of hypothyroidism- discussed with son as pt has been resistant to taking synthroid (didn;'t like pill and capsule has gelatin with pork which violates yazdanism beliefs--- he will look into compounding pharmacy to see if capsule can be made without this). TSH wnl this admit. -awaiting results of formal cortisol stim test 2. Hypokalemia Improved. 3. Constipation- resolved i think hypothyroidism is contributing and discussed this with son discussed dietary measures and OTC meds she can take as this chronic issue 4. hip pain- better, ambulating. Has had prior fracture on that side 5.urine cx with normal urogen leslie, no symptoms of UTI I discussed with [employer] Henrietta Pantoja MD [facility] pager [phone] 05/09/17 08:50 05/09/17 08:54 Subjective: Feels ok this am, eating breakfast. Had a few BMs yesterday. Nervous about drinking fluids including prune juice as afraid it will affect Na. She was started on d5w around midnight for Na of 138, most recent 134. Objective: Vital Signs Temp Pulse Resp BP Pulse Ox 36.9 C 76 18 119/53 L 91 L 05/09/17 07:32 05/09/17 07:32 05/09/17 07:32 05/09/17 07:32 05/09/17 07:32 Laboratory Results 05/09/17 04:00 05/08/17 05/09/17 05/10/17 05:59 05:59 05:59 Intake Total 450 1834 Output Total 1450 1575 Balance -1000 259 Physical Exam - Physical Exam General Appearance: alert, no apparent distress EENT: other (mmm) Neck: supple Respiratory: lungs clear, normal breath sounds Cardiac/Chest: regular rate, rhythm Abdomen: non-tender, soft Skin: warm/dry Extremities: other (no edema) Neuro/Psych: alert, oriented x 3 ICD10 Worksheet Patient Problems: Problems Problem Status Onset Acute hyponatremia Acute Arm pain, left Acute Heart palpitations Acute
[2017-05-09] MEDS: ENOXAPARIN 40 MG/0.4 ML SYR SC SCH (08:16)
[2017-05-09] MEDS: amLODIPine BESYLATE 5 MG TAB PO SCH (08:16)
[2017-05-09] MEDS: FERROUS SULFATE 325 MG TAB PO SCH (08:16)
[2017-05-09] MEDS: PANTOPRAZOLE SODIUM 40 MG TAB PO SCH (08:16)
[2017-05-09] MEDS: SENNOSIDES/DOCUSATE SODIUM TAB PO SCH ×2 (08:18→21:46)
--- NOTE | 2017-05-09 17:18 | HOSPPROG ---
Hospitalist Progress Note Assessment/Plan: * Hyponatremia - s/p slow correction -fluid restrict and follow closely - continue Q4 BMP -encourage better PO intake * Metabolic encephalopathy due to hyponatremia -resolved * Constipation -bowel protocol * Hypothyroidism -TSH normal on current thyroid replacement * Borderline cortisol level -check formal shalini stim test in am * HTN -Norvasc restarted at lower dose * Recent hip fx - non-operative -PT/OT * Moderate MS Subjective: No new complaints Objective: Vital Signs Temp Pulse Resp BP Pulse Ox 36.5 C 81 18 124/47 H 91 L 05/09/17 16:11 05/09/17 16:11 05/09/17 16:11 05/09/17 16:11 05/09/17 07:32 Laboratory Results 05/09/17 16:10 05/08/17 05/09/17 05/10/17 05:59 05:59 05:59 Intake Total 450 1834 620 Output Total 1450 1575 525 Balance -1000 259 95 - Physical Exam Constitutional: no apparent distress, appears nourished, not in pain Cardiovascular: regular rate and rhythym, no murmur, rub, or gallop Respiratory: no respiratory distress, no rales or rhonchi, clear to auscultation Gastrointestinal: normoactive bowel sounds, soft, non-tender abdomen, no palpable masses Skin: no rashes or abrasions, no fluctuance, no induration Neurologic: AAOx3, sensation intact bilaterally Psychiatric: interacting appropriately, not anxious, not encephalopathic, thought process linear ICD10 Worksheet Patient Problems: Problems Problem Status Onset Acute hyponatremia Acute Arm pain, left Acute Heart palpitations Acute
[2017-05-10 03:22] VITALS: TEMP 98.2; O2SAT 92
[2017-05-10 04:51] LABS: PLATELET COUNT 283 10^3/uL (150-400)
[2017-05-10] MEDS ORDERED: COSYNTROPIN 0.25 MG/2 ML SYRINGE IVP ONE (06:00)
[2017-05-10] MEDS: LEVOTHYROXINE 25 MCG TAB PO SCH (06:38)
--- NOTE | 2017-05-10 07:49 | SOAPPROG ---
SOAP Progress Note Assessment/Plan: Assessment: 1.. Severe symptomatic hyponatremia -Stable in 130s - did drop a bit yesterday that likely reflected the d5w she received night prior. Now eating/drinking on her own, Na stable 130s overnight -I have discussed at length with son need to encourage her to both eat and drink appropriately. I think reasonable amount of fluid intake is about 1.5 L/ day as long as eating varied diet as well. -continue treatment of hypothyroidism- discussed with son as pt has been resistant to taking synthroid (didn;'t like pill and capsule has gelatin with pork which violates latter day beliefs--- he will look into compounding pharmacy to see if capsule can be made without this). TSH wnl this admit. -cortisol stim ok -will have home health RN check labs later this week and we will arrange clinic f/u- please call us any concerns. 2. Hypokalemia Improved. 3. Constipation- resolved i think hypothyroidism is contributing and discussed this with son discussed dietary measures and OTC meds she can take as this chronic issue 4. hip pain- better, ambulating. Has had prior fracture on that side Henrietta Pantoja MD [facility] pager [phone] 05/10/17 09:54 Subjective: Feels good, wants to go home. Eating breakfast when I came by. Objective: Vital Signs Temp Pulse Resp BP Pulse Ox 36.8 C 89 18 164/97 H 92 05/10/17 03:19 05/10/17 03:19 05/10/17 03:19 05/10/17 03:19 05/10/17 03:19 Microbiology 05/06/17 20:00 Urine Culture - Final Unspecified Five Or More Wilson Types Laboratory Results 05/10/17 04:23 05/10/17 04:23 05/09/17 05/10/17 05/11/17 05:59 05:59 05:59 Intake Total 1834 960 Output Total 1575 725 Balance 259 235 Physical Exam - Physical Exam General Appearance: alert, no apparent distress EENT: other (mmm) Cardiac/Chest: regular rate, rhythm Extremities: other (no edema) Neuro/Psych: alert, oriented x 3 ICD10 Worksheet Patient Problems: Problems Problem Status Onset Acute hyponatremia Acute Arm pain, left Acute Heart palpitations Acute
[2017-05-10 08:17] VITALS: BP 140/76; PULSE 78; RESP 20
[2017-05-10] MEDS: ENOXAPARIN 40 MG/0.4 ML SYR SC SCH ×2 (08:19→08:23)
[2017-05-10] MEDS: PANTOPRAZOLE SODIUM 40 MG TAB PO SCH (08:21)
[2017-05-10] MEDS: amLODIPine BESYLATE 5 MG TAB PO SCH (08:21)
[2017-05-10] MEDS: FERROUS SULFATE 325 MG TAB PO SCH (08:21)
[2017-05-10] MEDS: SENNOSIDES/DOCUSATE SODIUM TAB PO SCH ×3 (08:22→08:28)
[2017-05-10] MEDS ORDERED: amLODIPine BESYLATE 5 MG TAB PO ONE (09:18)
--- NOTE | 2017-05-10 09:39 | PDIAF ---
- Diagnosis Diagnosis: hyponatremia Code Status: Full Code - Medication Management Discharge Medications: Medications to Continue on Transfer amLODIPine BESYLATE [Norvasc 10 mg (*)] 10 mg PO DAILY@12 03/24/16 [Last Taken 05/02/17] Fluticasone/Vilanterol [Breo Ellipta 100-25 Mcg INH] 1 each IH DAILY 05/03/17 [ Last Taken 05/02/17] Levothyroxine [Synthroid 25 mcg (*)] 12.5 mcg PO DAILY06 05/03/17 [Last Taken ] Pantoprazole Sodium [Protonix 40mg (*)] 40 mg PO DAILY #30 tab 05/10/17 [Last Taken Unknown] Discharge Medications: Refer to the Discharge Home Medication list for PRN reason. - Orders Services needed: Home Care, Registered Nurse, Physical Therapy, Occupational Therapy Home Care Face to Face: I certify that this patient was under my care and that I had the required [id number] encounter meeting the encounter requirements on the discharge day. My findings support the fact that the patient is homebound as defined in Home Care Face to Face Continued: CMS Chapter 7 Medicare Benefits Manual 30.1.1 , The condition of the patient is such that there exists a normal inability to leave home and consequently, leaving home would require a considerable and taxing effort. Diet Recommendation: no restrictions on diet (salt food liberally), fluid restriction (use comment for amount) (1500 ml per day) - Labs/Radiology BMP Date: 05/12/17 (every and thereafter) - Follow Up Care Current Providers and Referrals: Patient,NotPresent [Unknown] - As per Instructions Elizabeth Meza DO [Primary Care Provider] -
--- NOTE | 2017-05-10 17:33 | ASDISCHSUM ---
Discharge Information Plan Status:Home with Home Health Medically Cleared to Leave: Discharge Date:05/10/2017 01:00 PM CM D/C Disposition:Home Health Service ADT D/C Disposition:Home Health Service Projected Discharge Date:05/10/2017 03:00 PM Transportation at D/C:Family Discharge Delay Reason: Follow-Up Date:05/10/2017 03:00 PM Discharge Slot: Final Diagnosis:Hyponatremia Placement Information Referral Type:*Home Health Care Services Referral ID:[id number] Provider Name:[facility] [address] [address] Address 2: City:[place] Selection Factors: State:[place] Patient Contact Information Contact Name:PATTIE Relationship:Son Address: Work Phone: City: [facility] Phone: [facility] Code: Email: Financial Information Financial Class: Primary Plan Desc:MEDICARE IP PART B ONLY Primary Plan Number:[id number] Secondary Plan Desc:MEDICA[place] Secondary Plan Number:[id number] Assessment Information [facility] Initial CM Assessment Living Arrangements What is your living Answers: With Child(belia) arrangement? Who do you live with? Type Of Residence What kind of residence do Answers: Apartment you live in? Discharge Plan Comments Coordination Status Comments Notes: Patient is an 86yo female who was admitted for hyponatremia, abdominal pain, acute encephalopathy, hypertension and mitral stenosis. Patient is living with her son. OT/PT have been ordered. PT is recommending home care. CM to follow up with patient to determine which home care agency she would like to use. CM will follow. Date Signed: 05/04/2017 11:41 AM Electronically Signed By:Colette Gandhi LCSW [facility] CM Progress Note CM Note CM Note Notes: Spoke with patient's daughter Irlanda who helped translate information to patient. PT is recommending home care. Patient is amenable to home PT. She lives with her son who would be there to translate/assist. I called [facility] who will follow patient. We will notify them upon discharge. Date Signed: 05/05/2017 03:04 PM Electronically Signed By:Debora Ray RN [facility] CM Progress Note CM Note CM Note Notes: Hyponatremia better. Discharge plan continues to be [facility]. Date Signed: 05/08/2017 02:20 PM Electronically Signed By:Tresa Tracey LCSW Case Management Discharge Plan Note Case Management Discharge Discharge Order Complete? Answers: Yes Patient to Obtain Answers: via Family Medications Transportation Arranged Answers: Family/Friends Discharge Comments Notes: D/w , pt discharging with [facility] RN/PT/OT, Olamide notified. Also confirmed w/ that RN can go out Monday to check labs. Date Signed: 05/10/2017 12:19 PM Electronically Signed By:Madiha Lopez RN Intervention Information Intervention Type:*IM-Signed Date of Service:05/10/2017 11:08 AM Patient Type:Inpatient Staff Member:Giana Otero Hours: Discipline: Severity: Comment:
--- NOTE | 2017-05-10 18:08 | GDS ---
[f rep st] DISCHARGE SUMMARY DISCHARGE DIAGNOSES: 1. Hyponatremia. 2. Metabolic encephalopathy due to hyponatremia. 3. Constipation. 4. Hypothyroidism. 5. Hypertension. 6. Recent nonoperative hip fracture. 7. Moderate mitral stenosis. HISTORY: The patient is an 86-year-old Afghani female who is attentively cared for by her son, solomon ordoñez to the hospital with severe hyponatremia. She was seen here in consultation by Nephrology and had very slow correction over multiple days. Her urine studies were consistent with hyponatremia due to low solute intake. She has been following an extreme low-sodium diet due to extreme anxiety rega rding her hypertension. She was also drinking large quantities of water, following directions by her primary care provider. She is very meticulous regarding following all medical instructions. After extensive counseling, we were able to get them to understand that in her particular situation, a high er salt diet and a lower fluid intake is necessary for her sodium regulation. Nephrology recommends 1500 cc p.o. daily fluid restriction, as well as liberally salting her diet, with close outpatient mo nitoring of sodium levels. Her mental status had returned to baseline at discharge. TSH and ___stim testing within normal limits. DISCHARGE MEDICATIONS: Please see computerized record for full detailed list. New medications: Protonix substituted for Nexium, per patient request, as this was working better fo r her in the hospital. ADDITIONAL DISCHARGE INSTRUCTIONS: 1. Check sodium level twice weekly until regulated. 2. Due to intolerance of iron supplementations confusing her anticipated side effects from other the rapies, recommend stopping iron supplement for 1 month until sodium issues are regulated. 3. Milk of magnesia or MiraLAX recommended for constipation. 4. Home health, PT, OT, VNS. 5. Fluid restriction 1500 cc per day and liberally salt food. 6. Follow up with primary care, Dr. Elizabeth Meza, as scheduled. TIME SPENT: Greater than 30 minutes of time were spent arranging this discharge. Patient was seen a nd examined by me on day of discharge. /[id number]/MODL
== END 2017-05-10 13:00 | disposition home health service (06) | DRG 640 ==
LOC: EDUNIT# → F2N 11:57 → F3E 05-09 17:30
PROVIDERS: ADMIT Internal Medicine; ATTEND Internal Medicine
PROC: 02HV33Z Insertion of Infusion Device into Superior Vena Cava, Percutaneous Approach (ICD-10-PCS; principal; 2017-05-03)
DX: E87.1 Hypo-osmolality and hyponatremia (principal); G93.41 Metabolic encephalopathy; E87.6 Hypokalemia; I10 Essential (primary) hypertension; K59.00 Constipation, unspecified; E03.9 Hypothyroidism, unspecified; K44.9 Diaphragmatic hernia without obstruction or gangrene; I34.2 Nonrheumatic mitral (valve) stenosis; R73.03 Prediabetes; M10.9 Gout, unspecified
CPT/HCPCS: 84166-90; 97110-GP; 97116-GP; 97161-GP; 97166-GO; 97535-GO; C1751; G8978-GP-CJ; G8979-GP-CI; G8987-GO-CK; G8988-GO-CJ; J0834; J1650; J1940; J2597; J2997; J3480; Q9967

== ENCOUNTER → 2017-05-24 | Outpatient (CLI) | payer OTHER, MEDICAID | LOC: CIMAGING 10:57 | PROVIDERS: ATTEND Family Medicine | DX: R07.89 Other chest pain (principal); I51.7 Cardiomegaly; R93.3 Abnormal findings on diagnostic imaging of other parts of digestive tract | CPT/HCPCS: 71046-PO ==

== ENCOUNTER 2017-12-27 10:55 | Emergency (ER) | payer OTHER, MEDICAID ==
[2017-12-27] MEDS ORDERED: ACETAMINOPHEN 325 MG TAB ONE (11:55)
[2017-12-27] MEDS ORDERED: ACETAMINOPHEN 325 MG TAB PO ONE (11:57)
--- NOTE | 2017-12-27 11:59 | EDPHY ---
H & P Time Seen by Provider: 12/27/17 11:31 HPI/ROS: CHIEF COMPLAINT: Fall HISTORY OF PRESENT ILLNESS: Patient is an 87-year-old female presents emergency department after having a mechanical fall. Patient was using a walker. Patient states that she caught her foot and fell to her left arm. She now has left arm pain. It is primarily around her left wrist. She describes it as severe and worse with movement. It extends up to her left shoulder. Patient has chronic back pain which is unchanged. She has chronic leg pain from gout which is unchanged. She did not strike her head or lose consciousness. No nausea or vomiting. No focal weakness or numbness. Patient has had no chest pain or shortness of breath prior to the event or after. REVIEW OF SYSTEMS: 10 systems were reveiwed and are negative with the exception of the elements mentioned in the history of present illness. Past Medical/Surgical History: Includes non operative hip fracture, hypothyroidism, hypertension, mitral valve stenosis Smoking Status: Never smoked Physical Exam: Vitals noted GENERAL: Well-appearing, in no acute distress, alert. HEAD: No evidence of trauma. EYES: PERRLA, normal to inspection. ENT: Airway intact, no malocclusion, no hemotympanum, normal external examination. NECK: The trachea is midline. There is no crepitus. The C-spine is nontender. NEXUS criteria is negative (no midline tenderness, no distracting injury, no altered mental status, no recent alcohol use, no focal neurologic deficit). RESPIRATORY: [Clear to auscultation bilaterally, no rales, rhonchi or wheezing. No chest wall tenderness Chest wall: Normal to appearance. No crepitance or deformity. CVS: Regular rate and rhythm, no rubs, murmurs, or gallops. ABDOMEN: Soft, nontender, nondistended, no bruising or abrasions. Pelvis: Stable. No tenderness palpation. BACK: Normal to inspection, no spinal tenderness, no spinal step off, no notable bruising or abrasions. SKIN: Normal color, warm, dry. No pallor or diaphoresis. EXTREMITIES: Right upper extremity: Atraumatic. No visible signs of trauma. No tenderness palpation. Neurovascular intact distally. Left upper extremity: Patient has a deformity at her left wrist. There is mild tenderness palpation left wrist. Patient has no deformity of her forearm, elbow or humerus. She has mild tenderness palpation but she thinks this is secondary to her wrist. She is neurovascularly intact distally. Right lower extremity: Atraumatic. No visible signs of trauma. No tenderness palpation. Neurovascular intact distally. Left lower extremity: Atraumatic. No visible signs of trauma. No tenderness palpation. Neurovascular intact distally. NEURO/PSYCH: Alert and oriented x 3, GCS 15, normal mood and affect, normal motor sensory exam. Constitutional: Initial Vital Signs Heart Rate 85 12/27/17 11:08 Respiratory Rate 18 12/27/17 11:08 Blood Pressure 144/71 H 12/27/17 11:08 O2 Sat (%) 93 12/27/17 11:08 O2 Delivery Mode Room Air Allergies/Adverse Reactions: aspirin Allergy (Verified 12/27/17 11:16) GI peanut Allergy (Verified 12/27/17 11:16) RECOMMENDED SHE AVOID Penicillins Allergy (Verified 12/27/17 11:16) Unknown Home Medications: Medication Instructions Recorded amLODIPine BESYLATE [Norvasc 10 mg 10 mg PO DAILY@12 03/24/16 (*)] Fluticasone/Vilanterol [Breo 1 each IH DAILY 05/03/17 Ellipta 100-25 Mcg INH] Levothyroxine [Synthroid 25 mcg 12.5 mcg PO DAILY06 05/03/17 (*)] Medical Decision Making Procedures: Splint placement Indication: Wrist fracture Patient consented to the procedure. Ortho Glass splint was placed by me. The patient was neurovascular intact distally. ED Course/Re-evaluation: Patient's son is with her. He states he is the primary care provider. He gives me the history of the events as she does not speak Portuguese. X-ray of left shoulder, left elbow, left wrist: Please refer the dictated report. Patient has a distal radius fracture that is slightly comminuted and angulated. I discussed the results with the patient and son. I answered all her questions. Patient was given Tylenol 650 mg orally. Patient was placed in a sugar-tong Ortho Glass splint by me. The patient was neurovascularly intact distally post splint placement. Patient was given follow-up with Orthopedics. She was given warnings prior to leaving. She will return with worsening symptoms. Differential Diagnosis: My differential includes but is not limited to fall, wrist fracture, arm fracture, dislocation. I have considered that the fall could have been secondary to underlying medical condition. However, the patient states that she thinks she caught her leg. She has no chest pain or shortness of breath at this time. I doubt ACS, dysrhythmia, CVA. The patient did not strike her head and she has no complaints of headache. Out subarachnoid hemorrhage, subdural hematoma or epidural hematoma. - Data Points Medications Given: Discontinued Medications Acetaminophen (Tylenol) 650 mg PO EDNOW ONE Stop: 12/27/17 11:58 Last Admin: 12/27/17 11:57 Dose: 650 mg Departure - Departure Disposition: Home, Routine, Self-Care Clinical Impression: Wrist fracture, left Qualifiers: Encounter type: initial encounter Fracture type: closed Qualified Code(s): S62.102A - Fracture of unspecified carpal bone, left wrist, initial encounter for closed fracture Fall Qualifiers: Encounter type: initial encounter Qualified Code(s): W19.XXXA - Unspecified fall, initial encounter Condition: Good Instructions: Wrist Fracture in Adults (ED) Additional Instructions: You broke your distal radius. Keep your splint in place. This is not to be removed until you see the orthopedic surgeon. Call to make the next available appointment. You been given Dr. Parker's contact information. Referrals: Elizabeth Meza DO [Primary Care Provider] - As per Instructions Gera Parker MD [Medical Doctor] - 5-7 days, call for appt.
[2017-12-27 12:41] VITALS: BP 144/69
== END 2017-12-27 12:40 | disposition home or self-care (01) ==
LOC: CED 10:55
PROC: 2W39X1Z Immobilization of Left Upper Extremity using Splint (ICD-10-PCS; principal; 2017-12-27)
DX: S52.572A Other intraarticular fracture of lower end of left radius, initial encounter for closed fracture (principal); S52.612A Displaced fracture of left ulna styloid process, initial encounter for closed fracture; W01.0XXA Fall on same level from slipping, tripping and stumbling without subsequent striking against object, initial encounter; E03.9 Hypothyroidism, unspecified; I10 Essential (primary) hypertension
CPT/HCPCS: 25560; 73030; 73080; 73110; 99283; A4565

== ENCOUNTER → 2018-09-24 | Outpatient (CLI) | payer OTHER, MEDICAID | LOC: FIMAGING 09:22 ==